=== PATIENT | female | born 1950 | race Two or more races ===

== ENCOUNTER → 2023-01-18 | Outpatient (CLI) | payer OTHER ==
[2023-01-18 09:18] LABS: Basophils # (auto) 0 10 ^3/uL (0-0.2); Basophils % (auto) 0.7 % (0.0-2.0); Eosinophils # (auto) 0.1 10 ^3/uL (0-0.8); Eosinophils % (auto) 2.8 % (0.0-7.0); Hematocrit 37.2 % (36.0-46.0); Hemoglobin 12.5 g/dL (12.2-16.2); Lymphocytes # (auto) 1.7 10 ^3/uL (0.4-5.4); Mean Corpuscular Hemoglobin 30.7 pg (28.0-32.0); Mean Corpuscular Hgb Conc. 33.5 g/dL (32.0-36.0); Mean Corpuscular Volume 91.5 fL (80.0-100.0); Monocytes # (auto) 0.2 10 ^3/uL (0-1.3); Monocytes % (auto) 5.3 % (0.0-12.0); Neutrophils # (auto) 2.4 10 ^3/uL (1.6-8.6); Neutrophils % (auto) 54.2 % (37.0-80.0); Nucleated Red Blood Cells % 0.1 %; Red Blood Cells 4.07 10^6/uL (4.0-5.20); Red Cell Distribution Width 13.5 % (11.8-14.3); White Blood Cell 4.5 10^3/uL (4.4-10.8)
[2023-01-18 09:39] LABS: Urine Bacteria FEW /hpf (None Seen); Urine Blood 1+ /uL (Negative); Urine Clarity Clear (Clear); Urine Color Yellow (Yellow); Urine Mucus FEW (None Seen); Urine Protein, UAD TRACE (Negative); Urine Specific Gravity 1.019 (1.001-1.035); Urine Urobilinogen Normal (Negative); Urine WBC 2 /hpf (0 - 5)
[2023-01-18 09:46] LABS: Alanine Aminotransferase 12 U/L (7-40); Albumin 4.2 g/dL (3.2-4.8); Alkaline Phosphatase 55 U/L (46-116); Aspartate Aminotransferase 14 U/L (13-40); BUN/Creatinine Ratio 12.7 (10.0-20.0); Bilirubin, Total 0.4 mg/dL (0.2-1.0); Blood Urea Nitrogen 13 mg/dL (9-23); Calcium 9.2 mg/dL (8.5-10.1); Carbon Dioxide 29 mmol/L (20-30); Cholesterol 245 mg/dL (< 200); Glucose 95 mg/dL (74-106); HDL Cholesterol 51 mg/dL (40-59); LDL Cholesterol 183 mg/dL (< 100); Triglycerides 108 mg/dL (< 150)
[2023-01-18 09:47] LABS: Total Protein 7.1 g/dL (5.7-8.2)
[2023-01-18 10:56] LABS: Anion Gap 6 (5-15); Chloride 107 mmol/L (98-107); Potassium 4.5 mmol/L (3.5-5.1); Sodium 142 mmol/L (136-145)
== END | disposition home or self-care (01) ==
LOC: LAB 08:58
PROVIDERS: ATTEND Internal Medicine
DX: Z12.11 Encounter for screening for malignant neoplasm of colon (principal); Z00.00 Encounter for general adult medical examination without abnormal findings
CPT/HCPCS: 36415; 80053; 80061; 81001; 83036; 84443; 85025

== ENCOUNTER 2025-02-01 18:22 | Emergency (ER) | payer OTHER ==
[~2025-02-01] VITALS: Ht 160 cm; Wt 47.7 kg
--- NOTE | 2025-02-01 19:21 | DVH ---
CT HEAD WITHOUT CONTRAST INDICATION: LEFT SIDED NUMBNESS COMPARISON: None TECHNIQUE: CT of the head without intravenous contrast. RADIATION DOSE: CTDIvol: 51 mGy, DLP: 863 mGy*cm FINDINGS: There is no evidence of acute intracranial hemorrhage, extra-axial collection, mass effect, midline s hift, herniation or hydrocephalus. The ventricles, sulci and cisterns are age appropriate. The obregon -white differentiation is intact. The visualized paranasal sinuses and mastoid air cells are clear. The surrounding soft tissues and osseous structures are unremarkable. IMPRESSION: 1. No evidence of acute intracranial hemorrhage, mass effect or hydrocephalus.
[2025-02-01 20:04] VITALS: PULSE 60; RESP 20; O2SAT 97
--- NOTE | 2025-02-01 20:49 | DVH ---
INDICATION: Radiculopathy TECHNIQUE: 3 views of the cervical spine were obtained. COMPARISON: None FINDINGS: No evidence of vertebral fracture or compression deformity. The odontoid process and C1 lateral caro s are intact. Normal lordotic curvature without listhesis. Mild multilevel spondylosis. Prevertebra l soft tissues and lung apices are unremarkable. IMPRESSION: No acute finding of the cervical spine.
[2025-02-01] MEDS ORDERED: IBUP1TAB5 PO (21:13)
--- NOTE | 2025-02-01 21:14 | ED.PDOC ---
Musculoskeletal HPI Comments The patient is a pleasant but primarily Irish-speaking 74-year-old female who arrives the ED today for evaluation of left-sided face tingling and numbness as well as left arm tingling and left leg tingling that began upon waking up this morning. Patient states that she woke up this morning to tingling in her face, left arm and hand as well as left leg. Patient denies any history of CVA events or cardiac concerns. Patient states she was fearful last night and thinks that may be responsible. Patient was hypertensive on arrival. Patient is BEFAST negative. Chief Complaint: Upper Extremity Time Seen by MD: 19:07 Reviewed Notes: Nurses Notes Allergies: Coded Allergies: NO KNOWN ALLERGIES (Unverified , 02/01/25) Information Source: Patient Mode of Arrival: Ambulatory Location: Left Extremity Location: Arm, Leg, Other Timing: Hours Prehospital treatment: None Severity: Mild Able to Move Extremity: Yes Bear Weight: Fully Pain: None Hand Dominance: Right Mechanism: Spontaneous Circumstances: Spontaneous Onset of Symptoms: Spontaneous DVT Risk Factors: NONE Past Medical History PAST MEDICAL HISTORY: Denies Surgical History: Denies all surgeries TILTING HEAD BAND SAWYER History: No Pertinent TILTING HEAD BAND SAWYER History Family History Family History: Reviewed,noncontributory to illness, No family hx of Cancer, No family hx of DM, No family hx of Heart karin, No family hx of HTN, No family hx ofKidney karin, No family hx of Liver karin, No family hx of Lung karin, No family hx of Stroke Social History Smoker: Non-Smoker Alcohol: Denies ETOH Use Drugs: Denies Drug Use Lives In: Home Constitutional: denies: chills, diaphoresis, fatigue, fever, malaise, sweats, weakness, others EENTM: reports: others (Left-sided facial tingling.); denies: blurred vision, double vision, ear bleeding, ear discharge, ear drainage, ear pain, ear ringing, eye pain, eye redness, hearing loss, mouth pain, mouth swelling, nasal dischar ge, nose bleeding, nose congestion, nose pain, photophobia, tearing, throat pain, throat swelling, voice changes Respiratory: denies: cough, hemoptysis, orthopnea, SOB at rest, shortness of breath, SOB with excertion, stridor, wheezing, others Cardiovascular: denies: chest pain, dizzy spells, diaphoresis, Dyspnea on exertion, edema, irregular heart beat, left arm pain, lightheadedness, palpitations, PND, syncope, others Gastrointestinal: denies: abdomen distended, abdominal pain, blood streaked bowels, constipated, diarrhea, dysphagia, difficulty swallowing, hematemesis, melena, nausea, poor appetite, poor fluid intake, rectal bleeding, rectal pain, vomiting, others Genitourinary: denies: abnormal vagina bleeding, burning, dyspareunia, dysuria, flank pain, frequency, hematuria, incontinence, pain, , vagina discharge, urgency, others Neurological: denies: dizziness, fainting, headache, left sided numbness, left sided weakness, numbness, paresthesia, pre-existing deficit, right sided numbness, right sided weakness, seizure, speech problems, tingling, tremors, weakness, others Musculoskeletal: reports: others (Tingling and numbness and left arm and hand and left leg.); denies: back pain, gout, joint pain, joint swelling, muscle pa in, muscle stiffness, neck pain Integumetry: denies: bruises, change in color, change in hair/nails, dryness, laceration, lesions, lumps, rash, wounds, others Allergic/Immunocompromised: denies: Difficulty Healing, Frequent Infections, Hives, Itching, others Hematologic/Lymphatic: denies: anemia, blood clots, easy bleeding, easy bruising, swollen glands, others Endocrine: denies: excessive hunger, excessive sweating, excessive thirst, excessive urination, flushing, intolerance to cold, intolerance to heat, unexplained weight gain, unexplained weight loss, others Psychiatric: denies: anxiety, bipolar disorder, depression, hopeless, panic disorder, schizophrenia, sleepless, suicidal, others Physical Exam General Appearance: Mild Distress (Moderate distress due to anxiety related to her complaints rather than pain concerns.), Normal HEENT: Head (Unremarkable cranial evaluation. No signs of trauma. No pulsatile masses noted temporally. Patient is able to open and close eyes without effort.), Normal ENT Inspection, Pharynx Normal, TMs Normal Neck: Full Range of Motion, Non-Tender, Normal, Normal Inspection Respiratory: Chest Non-Tender, Lungs Clear, No Accessory Muscle Use, No Resp iratory Distress, Normal Breath Sounds Cardiovascular: No Edema, No JVD, No Murmur, No Gallop, Normal Peripheral Pulses, Regular Rate/Rhythm Breast Exam: Deferred Gastrointestinal: No Organomegaly, Non Tender, No Pulsatile Mass, Normal Bowel Sounds, Soft Genitalia: Deferred Pelvic: Deferred Rectal: Deferred Extremities: Other (Arm and left leg were unremarkable on examination. Equal strength throughout. 5+ over 5+ noted globally. No deficits. No signs of stroke.) Neurologic: Alert Cerebellar Function: NOT DONE Reflexes: NOT DONE Skin: Dry, Normal Color, Warm Lymphatic: No Adenopathy Was a procedure done? Was a procedure done?: No Differential Diagnosis EXT Differential Diagnosis: Other (Cranial neoplasm, cervical radiculopathy, neuropathy) X-Ray, Labs, Meds, VS Vital Signs Date Time Temp Pulse Resp B/P (MAP) Pulse Ox O2 Delivery O2 Flow Rate FiO2 02/01/25 20:26 155/80 02/01/25 20:04 98.2 60 20 155/57 (89) 97 98.2 02/01/25 20:04 60 20 97 Room Air* 0 21 02/01/25 18:38 56 02/01/25 18:26 97.6 68 18 185/81 96 97.6 Lab Test 02/01/25 18:36 Range/Units POC Glucose 100 70-106 mg/dl Current Medications Medications (Trade) Dose Ordered Sig/Fernanda Route Start Time Stop Time Status Last Admin Clonidine HCl (Catapres Tablet) 0.2 mg ONCE ONCE PO 02/01/25 19:45 02/01/25 19:46 DC 02/01/25 20:26 X-Ray, Labs, Meds, VS Comment All studies performed the ED were evaluated by me personally. Head CT was unremarkable for any acute intracranial process or neoplasm. Cervical spine x- ray was unremarkable for any definitive degenerative disc disease. Lordotic curve was maintained. Patient appears to have some neuropathic issues that may be related to sleep position as that is when these complaints began. Advised patient utilize anti-inflammatory for the next few days and if the symptoms continue, patient will need to follow up with the primary care provider. Additionally, patient should follow up with the primary care provider for discussions related to proper blood pressure management. Time of 1ST Reevaluation: 21:11 Reevaluation 1ST: Unchanged Consultation: PCP Patient Education/Counseling: Diagnosis, Treatment Family Education/Counseling: Diagnosis, Treatment Sepsis Recent Procedure: No On Antibiotic Therapy: No Respiratory Rate >20: No Heart Rate >90: No Temp<36 C (96.8 F) or >38.3 C: No SBP <90 or MAP <65 mmHG: No New Acute Mental Status Change: No Is the patient on CPAP, BIPAP,: No IV fluid given: No Departure 1 Departure Time of Disposition: 21:12 Impression: Primary Impression: Radiculopathy Disposition: HOME / SELF CARE / HOMELESS Condition: Stable Additional Instructions: Advised patient utilize anti-inflammatory for the next few days as scheduled. I f symptoms continue, patient will need to follow up with the primary care provider for possible neurologic referral and evaluation. e-Prescriptions Ibuprofen Micronized (Ibuprofen) 600 Mg Tab 600 MG PO Q6HP PRN, #20 TAB Prov: ASHOK MCKEON PAC 02/01/25 Discharged With: Self, Friend Critical Care Note Critical Care Time?: No Stability Stability form required: No Heart Score Heart Score: Heart Score Response (Comments) Value History N/A 0 EKG N/A 0 Age N/A 0 Risk Factors N/A 0 Troponin N/A 0 Total 0 ASHOK MCKEON PAC Feb 01, 2025 21:14
[2025-02-01 21:32] VITALS: BP 102/56; PULSE 62; RESP 18; TEMP 98.2; O2SAT 95
--- NOTE | 2025-02-03 10:08 | ECG ---
[facility] Test Date: 2025-02-01 Test Time: 18:38:39 Pat Name: ESTELA MACKENZIETERO Department: [facility] ED Patient ID: [facility]-[id number] Room: Gender: F [employer] Supervisor: nelson : 1950 Requested By: PAUL FERREIRA Order Number: [id number] Reading MD: Measurements Intervals Skillman Rate: 56 P: 63 GA: 181 QRS: 5 QRSD: 90 T: 33 QT: 390 QTc: 377 Interpretive Statements Sinus rhythm Left ventricular hypertrophy Baseline wander in lead(s) V4 Please click the below link to view image of tracing.
== END 2025-02-01 21:42 | disposition home or self-care (01) ==
LOC: ER 18:24
DX: M54.12 Radiculopathy, cervical region (principal); Z79.899 Other long term (current) drug therapy
CPT/HCPCS: 70450; 72040; 82947; 93005; 96372; 99285; J1100; 82962

== ENCOUNTER 2025-03-13 06:42 | Outpatient (CLI) | payer OTHER ==
[~2025-03-13 06:42] MED LIST: IBUP1TAB5 PO
[2025-03-13 07:23] LABS: Hematocrit 37.5 % (36.0-46.0); Hemoglobin 12.5 g/dL (12.2-16.2); Mean Corpuscular Hemoglobin 31.1 pg (28.0-32.0); Mean Corpuscular Volume 93.0 fL (80.0-100.0); Nucleated Red Blood Cells % 0.0 %
[2025-03-13 07:52] LABS: Urine Protein, UAD Negative (Negative)
[2025-03-13 07:54] LABS: Alanine Aminotransferase 35 U/L (7-40); Albumin 4.2 g/dL (3.2-4.8); Alkaline Phosphatase 78 U/L (46-116); Anion Gap 9 (5-15); BUN/Creatinine Ratio 14.9 (10.0-20.0); Blood Urea Nitrogen 15 mg/dL (9-23); Calcium 9.3 mg/dL (8.7-10.4); Carbon Dioxide 28 mmol/L (20-31); Chloride 104 mmol/L (98-107); Glucose 93 mg/dL (74-106); HDL Cholesterol 54 mg/dL (40-59); Potassium 5.0 mmol/L (3.5-5.1); Sodium 141 mmol/L (136-145); Total Protein 7.3 g/dL (5.7-8.2); Triglycerides 111 mg/dL (< 150)
[2025-03-13 07:56] LABS: Bilirubin, Total 0.3 mg/dL (0.2-1.0); Cholesterol 259 mg/dL (< 200)
== END 2025-03-13 17:00 | disposition home or self-care (01) ==
LOC: LAB 06:42
PROVIDERS: ATTEND Internal Medicine
DX: N18.31 Chronic kidney disease, stage 3a (principal); E78.5 Hyperlipidemia, unspecified; Z12.11 Encounter for screening for malignant neoplasm of colon
CPT/HCPCS: 36415; 80053; 80061; 81001; 84443; 85025; 85652; 86141